=== PATIENT | male | born 1955 | race Caucasian/White ===

== ENCOUNTER 2018-05-23 17:49 | Emergency (ER) | payer MEDICARE, OTHER ==
[~2018-05-23] VITALS: Ht 193 cm; Wt 113.4 kg
[~2018-05-23 17:49] MED LIST: ACHYD1T PO; CEPH500C PO; NAPR-689 PO; RAMI5CAP18 PO
[2018-05-23 18:13] LABS: BASOPHILS % (AUTO) 1 % (0-10); EOSINOPHILS # (AUTO) 0.2 10^3/uL (0.0-0.3); EOSINOPHILS % (AUTO) 3 % (0-10); HEMATOCRIT 39 % (40-54); HEMOGLOBIN 13.6 G/DL (13.3-17.7); LYMPHOCYTES # (AUTO) 1.8 X 10^3 (1.0-4.0); LYMPHOCYTES % (AUTO) 33 % (12-44); MEAN CORPUSCULAR HEMOGLOBIN 30 PG (25-34); MEAN CORPUSCULAR HGB CONC 35 G/DL (32-36); MEAN CORPUSCULAR VOLUME 84 FL (80-99); MEAN PLATELET VOLUME 9.4 FL (7.4-10.4); MONOCYTES # (AUTO) 0.6 X 10^3 (0.0-1.0); MONOCYTES % (AUTO) 11 % (0-12); NEUTROPHILS # (AUTO) 2.9 X 10^3 (1.8-7.8); NEUTROPHILS % (AUTO) 53 % (42-75); PLATELET COUNT 213 10^3/uL (130-400); RED BLOOD COUNT 4.58 10^6/uL (4.35-5.85); RED CELL DISTRIBUTION WIDTH 13.5 % (10.0-14.5); WHITE BLOOD COUNT 5.4 10^3/uL (4.3-11.0)
[2018-05-23] MEDS ORDERED: ASPIRIN 81 MG CHEW (CHILDREN'S ASA) PO ONE (18:15)
[2018-05-23] MEDS ORDERED: NITROGLYCERIN 0.4 MG SL TABS BTL 25'S SL PRN (18:15)
--- NOTE | 2018-05-23 18:17 | Diagnostic Imaging Report ---
INDICATION: Chest pain. FINDINGS: The heart size, mediastinal configuration, and pulmonary vascularity are within normal limits. There is no pleural effusion, pneumothorax, or pneumonia. The osseous structures are unremarkable. IMPRESSION: No acute cardiopulmonary abnormality. Dictated by: Dictated on workstation # [id number]
[2018-05-23 18:20] LABS: PROTHROMBIN TIME PATIENT 12.7 SEC (12.2-14.7)
[2018-05-23 18:26] LABS: ALANINE AMINOTRANSFERASE 26 U/L (0-55); ALBUMIN 4.4 GM/DL (3.2-4.5); ALKALINE PHOSPHATASE 126 U/L (40-136); AMYLASE 43 U/L (25-125); BILIRUBIN,TOTAL 0.6 MG/DL (0.1-1.0); BUN/CREATININE RATIO 23; CALCIUM 9.5 MG/DL (8.5-10.1); CARBON DIOXIDE 21 MMOL/L (21-32); CHLORIDE 108 MMOL/L (98-107); CREATININE SERUM 0.82 MG/DL (0.60-1.30); GFR ESTIMATED > 60; GLUCOSE 99 MG/DL (70-105); LIPASE 34 U/L (8-78); MAGNESIUM 2.2 MG/DL (1.8-2.4); POTASSIUM 4.1 MMOL/L (3.6-5.0); SODIUM 138 MMOL/L (135-145); TOTAL PROTEIN 7.1 GM/DL (6.4-8.2)
[2018-05-23 18:33] LABS: MYOGLOBIN SERUM 69.1 NG/ML (10.0-92.0)
--- NOTE | 2018-05-23 18:43 | ED Chest Pain ---
General Chief Complaint: Chest Pain Stated Complaint: CHEST PRESSURE/DIZZINESS Source: patient Exam Limitations: no limitations History of Present Illness Date Seen by Provider: May 23, 2018 Time Seen by Provider: 18:41 Initial Comments ER with reports of chest pressure and dizziness. Somewhat vague about when this started, either this morning or at the latest this afternoon. It's been constant for at least several hours. No shortness of breath. He describes this as a pressure. Cannot identify any worsening or alleviating factors. No history of this. He is a nonsmoker. States his father has had a pacemaker but he is unaware what other cardiac issues father had. Otherwise there is no known coronary artery disease or heart attacks. Timing/Duration: 4-6 hours, constant Severity/Quality: moderate Location: central Radiation: neck ASA po SEWING LINE BALER: No NTG SL SEWING LINE BALER: No Associated Symptoms: No diaphoresis, No nausea/vomiting Allergies and Home Medications Allergies Coded Allergies: No Known Drug Allergies (Unverified , 10/02/14) Home Medications Cephalexin Monohydrate 500 Mg Capsule, 1 EACH PO BID Prescribed by: SHAHID ROYAL on 10/03/14 1039 Hydrocodone Bit/Acetaminophen 1 Tab Tablet, 1-2 TAB PO Q4H Prescribed by: SHAHID ROYAL on 10/03/14 1039 Ramipril 5 Mg Capsule, 5 MG PO DAILY, (Reported) Patient Home Medication List Home Medication List Reviewed: Yes Review of Systems Constitutional: see HPI EENTM: No Symptoms Reported Respiratory: No Symptoms Reported; Denies Cough, Denies Orthopnea, Denies Shortness of Air, Denies SOA With Exertion, Denies SOA at Rest Cardiovascular: See HPI, Chest Pain; Denies Edema, Denies Irregular Heart Rate , Denies Lightheadedness, Denies Palpitations, Denies Syncope Gastrointestinal: See HPI Genitourinary: No Symptoms Reported Musculoskeletal: no symptoms reported Skin: no symptoms reported Psychiatric/Neurological: No Symptoms Reported Endocrine: No Symptoms Reported Hematologic/Lymphatic: No Symptoms Reported Past Qmtxvda-Jsmeml-Gnomvm Hx Patient Social History Recent Foreign Travel: No Contact w/Someone Who Travel: No Physical Exam Vital Signs Vital Signs - First Documented Capillary Refill : Height, Weight, BMI Height: 6'4.00" Weight: 242lbs. oz. 109.464467aa; BMI Method: General Appearance: No Apparent Distress, WD/WN HEENT: PERRL/EOMI, TMs Normal Neck: Full Range of Motion, Normal Inspection Respiratory: Normal Breath Sounds, No Accessory Muscle Use, No Respiratory Distress Cardiovascular: Regular Rate, Rhythm, Normal Peripheral Pulses Gastrointestinal: Normal Bowel Sounds, Non Tender, Soft Extremity: Normal Capillary Refill, Normal Inspection Neurologic/Psychiatric: Alert, Oriented x3, No Motor/Sensory Deficits Skin: Normal Color, Warm/Dry Progress/Results/Core Measures Results/Orders Lab Results Laboratory Tests Test 05/23/18 18:00 05/23/18 20:12 Range/Units White Blood Count 5.4 4.3-11.0 10^3/uL Red Blood Count 4.58 4.35-5.85 10^6/uL Hemoglobin 13.6 13.3-17.7 G/DL Hematocrit 39 L 40-54 % Mean Corpuscular Volume 84 80-99 FL Mean Corpuscular Hemoglobin 30 25-34 PG Mean Corpuscular Hemoglobin Concent 35 32-36 G/DL Red Cell Distribution Width 13.5 10.0-14.5 % Platelet Count 213 130-400 10^3/uL Mean Platelet Volume 9.4 7.4-10.4 FL Neutrophils (%) (Auto) 53 42-75 % Lymphocytes (%) (Auto) 33 12-44 % Monocytes (%) (Auto) 11 0-12 % Eosinophils (%) (Auto) 3 0-10 % Basophils (%) (Auto) 1 0-10 % Neutrophils # (Auto) 2.9 1.8-7.8 X 10^3 Lymphocytes # (Auto) 1.8 1.0-4.0 X 10^3 Monocytes # (Auto) 0.6 0.0-1.0 X 10^3 Eosinophils # (Auto) 0.2 0.0-0.3 10^3/uL Basophils # (Auto) 0.0 0.0-0.1 10^3/uL Prothrombin Time 12.7 12.2-14.7 SEC INR Comment 1.0 0.8-1.4 Activated Partial Thromboplast Time 28 24-35 SEC D-Dimer 0.51 H 0.00-0.49 UG/ML Sodium Level 138 135-145 MMOL/L Potassium Level 4.1 3.6-5.0 MMOL/L Chloride Level 108 H 98-107 MMOL/L Carbon Dioxide Level 21 21-32 MMOL/L Anion Gap 9 5-14 MMOL/L Blood Urea Nitrogen 19 H 7-18 MG/DL Creatinine 0.82 0.60-1.30 MG/DL Estimat Glomerular Filtration Rate > 60 BUN/Creatinine Ratio 23 Glucose Level 99 70-105 MG/DL Calcium Level 9.5 8.5-10.1 MG/DL Corrected Calcium 9.2 8.5-10.1 MG/DL Magnesium Level 2.2 1.8-2.4 MG/DL Total Bilirubin 0.6 0.1-1.0 MG/DL Aspartate Amino Transf (AST/SGOT) 22 5-34 U/L Alanine Aminotransferase (ALT/SGPT) 26 0-55 U/L Alkaline Phosphatase 126 40-136 U/L Myoglobin 69.1 10.0-92.0 NG/ML Troponin I < 0.30 <0.30 NG/ML B-Type Natriuretic Peptide 10.9 <100.0 PG/ML Total Protein 7.1 6.4-8.2 GM/DL Albumin 4.4 3.2-4.5 GM/DL Amylase Level 43 25-125 U/L Lipase 34 8-78 U/L My Orders Orders - SIM GREENE APRN Cbc With Automated Diff (05/23/18 18:) Magnesium (05/23/18 18:) Chest 1 View, Ap/Pa Only (05/23/18 18:) Ekg Tracing (05/23/18 18:) Cardiac Profile 1 (05/23/18 18:03) Comprehensive Metabolic Panel (05/23/18 18:) Myoglobin Serum (05/23/18 18:) Protime With Inr (05/23/18:) Partial Thromboplastin Time (05/23/18 18:) O2 (05/23/18 18:) Monitor-Rhythm Ecg Trace Only (05/23/18 18:) Lipid Panel (05/24/18 06:00) Aspirin Chewable Tablet (Baby Aspirin Ch (05/23/18 18:15) Nitroglycerin 0.4 Mg Btl 25's (Nitrostat (05/23/18 18:15) Saline Lock/Iv-Start (05/23/18 18:) Lipase (05/23/18 18:) Amylase (05/23/18 18:03) BNP (05/23/18 18:03) Fibrin Degradation Products (05/23/18 18:03) Troponin I (05/23/18 19:58) Medications Given in ED Current Medications Medications Dose Ordered Sig/Apryl Route Start Time Stop Time Status Last Admin Dose Admin Aspirin 324 mg ONCE ONCE PO 05/23/18 18:15 05/23/18 18:16 DC 05/23/18 18:08 324 MG Nitroglycerin 0.4 mg UD PRN SL 05/23/18 18:15 05/23/18 18:08 0.4 MG Vital Signs/I&O 05/23/18 05/23/18 05/23/18 05/23/18 17:50 17:50 18:00 19:00 Temp 97.9 Pulse 73 B/P (MAP) 161/96 (117) Pulse Ox 94 94 O2 Delivery Room Air Room Air Room Air Room Air Progress Progress Note : Progress Note EKG shows normal sinus rhythm rate of 69, no ectopy, no ST segment changes, normal intervals. Diagnostic Imaging Diagonstic Imaging: Xray Plain Films/CT/US/NM/MRI: chest Comments No acute abnormalities per the radiologist's interpretation Departure Communication (Admissions) Family Conversation His d-dimer adjusted for age is negative. 2014- discussed the case with Dr. Pollock here in the emergency room. He did review the EKG He agrees with discharge to home with a repeat troponin is negative. He can see the patient tomorrow in his office. Impression Primary Impression: Chest pain Qualified Codes: R07.9 - Chest pain, unspecified Disposition: 01 HOME, SELF-CARE Condition: Stable Departure-Patient Inst. Decision time for Depature: 20:15 Referrals: RYANNE POLLOCK MD NO,LOCAL PHYSICIAN (PCP) Primary Care Physician Patient Instructions: Chest Pain (DC) Add. Discharge Instructions: 1. Return to ER for any worsening symptoms in [facility] that is just fine also. All discharge instructions reviewed with patient and/or family. Voiced understanding. Copy Copies To 1: RYANNE POLLOCK MD, PETER J APRN May 23, 2018 18:43
--- OUTSIDE RECORDS SUMMARY | 2018-05-23 19:58 | XMS REPORT | Continuity of Care Document ---
Author Author [facility] Organization [facility] Address Unknown Phone Unavailable Allergies Active Description Code Type Severity Reaction Onset Reported/Identified Relationship to Patient Clinical Status Yes No Known Drug Allergies [id number] Drug Allergy Unknown N/A 10/02/2014 Medications There is no data. Problems Date Dx Coded Attending Type Code Diagnosis Diagnosed By 10/03/2014 CHANDNI ESTEVES, DARLENE A Ot 608.1 10/08/2014 CHANDNI ESTEVES, DARLENE A Ot 608.1 10/08/2014 CHANDNI ESTEVES, DARLENE A Ot V72.83 10/08/2014 CHANDNI ESTEVES, DARLENE A Ot V74.8 10/08/2014 CHANDNI ESTEVES, DARLENE A Ot 608.1 10/08/2014 CHANDNI ESTEVES, DARLENE A Ot V72.83 10/08/2014 CHANDNI ESTEVES, DARLENE A Ot V74.8 10/08/2014 CHANDNI ESTEVES, DARLENE A Ot 608.1 10/08/2014 CHANDNI ESTEVES, DARLENE A Ot V72.83 10/08/2014 CHANDNI ESTEVES, DARLENE A Ot V74.8 10/08/2014 CHANDNI ESTEVES, DARLENE A Ot 608.1 10/08/2014 CHANDNI ESTEVES, DARLENE A Ot V72.83 10/08/2014 CHANDNI ESTEVES, DARLENE A Ot V74.8 10/08/2014 CHANDNI ESTEVES, DARLENE A Ot 608.1 10/08/2014 CHANDNI ESTEVES, DARLENE A Ot V72.83 10/08/2014 CHANDNI ESTEVES, DARLENE A Ot V74.8 10/15/2014 CHANDNI ESTEVES, DARLENE A Ot 608.1 10/15/2014 CHANDNI ESTEVES, DARLENE A Ot V72.83 10/15/2014 CHANDNI ESTEVES, DARLENE A Ot V74.8 10/19/2014 CHANDNI ESTEVES, DARLENE A Ot 608.1 10/19/2014 CHANDNI ESTEVES, DARLENE Dodge Ot V72.83 10/19/2014 CHANDNI ESTEVES, DARLENE Dodge Ot V74.8 11/27/2014 CHANDNI ESTEVES, DARLENE Dodge Ot 608.1 11/27/2014 CHANDNI ESTEVES, DARLENE Dodge Ot V72.83 11/27/2014 CHANDNI ESTEVES, DARLENE Dodge Ot V74.8 Procedures There is no data. Results There is no data. Encounters ACCT No. Visit Date/Time Discharge Status Pt. Type Provider Facility Loc./Unit Complaint [id number] 10/03/2014 07:40:00 10/03/2014 11:30:00 DIS Outpatient DARLENE TARIQ MD [facility] [id number] 10/02/2014 11:15:00 10/02/2014 23:59:59 CLS Outpatient DARLENE TARIQ MD [facility] PREOP
[2018-05-23 21:07] VITALS: BP 125/91
== END 2018-05-23 21:07 | disposition home or self-care (01) ==
LOC: ER 17:49 → EDUNIT# 17:49 → ER 21:07
DX: R07.89 Other chest pain (principal); Z82.49 Family history of ischemic heart disease and other diseases of the circulatory system
CPT/HCPCS: 36415; 71045; 80053; 82150; 83690; 83735; 83874; 83880; 84484; 85025; 85379; 85610; 85730; 93005; 93041

== ENCOUNTER → 2019-08-08 | Outpatient (CLI) | payer MEDICARE, OTHER ==
--- NOTE | 2019-08-08 14:14 | Diagnostic Imaging Report ---
INDICATION: Right leg pain. TIME OF EXAM: 12:33 PM FINDINGS: Multiple views right tibia and fibula were obtained. There is lateral compartmental degenerative change with joint space narrowing and marginal spurring. There appears to be chondrocalcinosis present. Significant degenerative changes at the patellofemoral joint is also noted. Alignment at the knee and ankle is normal. Tibia and fibula appear to be intact. No fractures are seen. IMPRESSION: Degenerative changes at the knee. No acute bony abnormality is detected. Dictated by: Dictated on workstation # [id number]
== END ==
LOC: RAD 12:10
PROVIDERS: ATTEND Nurse Practitioner Family
DX: M17.11 Unilateral primary osteoarthritis, right knee (principal)
CPT/HCPCS: 73590

== ENCOUNTER → 2020-08-22 | Outpatient (CLI) | payer MEDICARE, OTHER ==
--- NOTE | 2020-08-22 16:54 | Diagnostic Imaging Report ---
INDICATION: Low back pain. COMPARISON: Lumbar spine radiograph performed concurrently. FINDINGS: No soft tissue mineralizations to suggest urinary tract calculi by radiography. Please note that radiographs are not as sensitive as CT in assessment for urinary tract calculi. Prior laminectomy and posterior instrumented fusion of lumbar spine was more completely evaluated on the lumbar spine radiographs performed concurrently. Bilateral total hip arthroplasties are present. Nonobstructive bowel gas pattern. IMPRESSION: 1. No radiographically apparent urinary tract calculi. Dictated by: Dictated on workstation # [id number]
--- NOTE | 2020-08-22 17:37 | Diagnostic Imaging Report ---
CLINICAL INDICATIONS: Patient fell a couple of weeks ago. Patient complains of lower back pain and abdominal pain from fall. EXAM: X-ray of the lumbar spine, 3 views. COMPARISON: None. FINDINGS: There is no acute fracture seen. There appears to be chronic compression deformities or physiological wedging anteriorly involving the T12 and L1 vertebra. There is incompletely imaged left curvature of the thoracolumbar spine. There are hypertrophic spurs seen throughout the lumbar spine and facet arthropathy. There is L4-S1 posterior lumbar interbody fusion. There is L4 and L5 laminectomies. There is no hardware complication such as osteolysis or hardware fracture. There appears to be solid bony bridging/fusion from the L4-S1 levels. Interbody disk graft components are seen at the L4-L5 level. There is grade 1 anterolisthesis of L4 on L5. Partially visualized bilateral hip arthroplasties are noted. IMPRESSION: 1: There is multilevel thoracolumbar spine degenerative disease. 2: There is L4-S1 posterior lumbar interbody fusion with no evidence of hardware complication. There appears to be solid bony bridging/fusion of the L4-S1 levels. Dictated by: Dictated on workstation # [id number]
== END ==
LOC: RAD 15:26
DX: M51.35 Other intervertebral disc degeneration, thoracolumbar region (principal); M43.27 Fusion of spine, lumbosacral region
CPT/HCPCS: 72100; 74018